=== PATIENT | female | born 1990 ===

== ENCOUNTER 2020-06-07 16:54 | Outpatient (REF) | payer BC, SELFPAY ==
--- NOTE | 2020-06-07 15:30 | PAPFT_PTH ---
PATIENT: ANA GOTTI LOC: [facility] U#:[id number] AGE/SX: 29/F ROOM: RE06/07/[address]: Marly Ramirez : 1990 BED: DIS: 06/07/2020 SPEC #: [id number] RECD: 06/08/20 12:53 STATUS: JORJE REQ #: [id number] LUIS: 06/07/20 15:[address]: Marly Ramirez DEPT: [facility] Cytology RECD BY: Hallie Randolph Tissues: 1 - CX/ENDOCX FOR PAP SMEARS Procedures: PAP THIN PREP/[facility] Screening Comments: [id number] (CHLAMYDIA/GC)
[2020-06-09 15:28] LABS: Chlamydia Result Negative (Negative); GC Result Negative (Negative)
== END 2020-06-07 17:14 ==
LOC: NCHCN 16:54
PROVIDERS: PCP Family Medicine; Visit Provider Family Medicine
DX: Z12.4 Encounter for screening for malignant neoplasm of cervix (principal); Z12.79 Encounter for screening for malignant neoplasm of other genitourinary organs
CPT/HCPCS: 87491; 87591; 88142